=== PATIENT | male | born 1990 | race Asian ===

== ENCOUNTER 2020-03-17 17:54 | Emergency (ER) | payer OTHER ==
[~2020-03-17] VITALS: Ht 180.3 cm; Wt 63.5 kg
[2020-03-17 18:11] VITALS: BP 139/91; TEMP 99.1
== END 2020-03-17 18:05 | disposition home or self-care (01) ==
LOC: ED 17:54
DX: R31.9 Hematuria, unspecified (principal)
CPT/HCPCS: 99281; J1885; J2405

== ENCOUNTER 2020-03-21 15:50 | Emergency (ER) | payer OTHER ==
[~2020-03-21] VITALS: Ht 180.3 cm; Wt 63.5 kg
[2020-03-21 16:59] VITALS: BP 154/98; TEMP 99.2
== END 2020-03-21 16:59 | disposition home or self-care (01) ==
LOC: ED 15:50
DX: N45.1 Epididymitis (principal)
CPT/HCPCS: 87490; 87590; 96372; 99282; 99283; J0696